=== PATIENT | male | born 1950 | race Caucasian/White ===

== ENCOUNTER 2021-06-17 16:40 | Inpatient (IN) ==
[2021-06-17 20:37] LABS: PT Patient Result 10.6 SECS (10.5-12.0); Partial Thromboplastin Time 22.8 SECS (23.8-32.1)
[2021-06-17 20:40] LABS: Basophils # 0.1 10*3/uL (0.0-0.2); Basophils % 0.9 % (0.0-0.8); Eosinophils # 0.1 10*3/uL (0.0-0.87); Eosinophils % 1.1 % (0.00-10.9); Hematocrit 22.3 VOL% (42.0-52.0); Immature Granulocytes % 0.6 %; Immature Granulocytes Absolute 0.03 #; Lymphocytes # 1.5 10*3/uL (1.4-4.0); Lymphocytes % 27.3 % (21.2-54.2); Mean Corpuscular HGB Conc 26.5 GM/DL (32-36); Mean Corpuscular Volume 67.6 FL (87-102); Mean Platelet Volume 9.7 FL (9.6-12.0); Monocytes # 0.7 10*3/uL (0.11-0.8); Monocytes % 12.3 % (1.7-12.7); Neutrophils % 57.8 % (38.7-73.9); Platelet Count 376 T/CUMM (130-400); Red Cell Distribution Width 18.8 % (9.3-17.3); White Blood Count 5.4 T/CUMM (4-12)
[2021-06-17 20:42] LABS: Albumin 4.1 G/DL (3.4-5.0); Bilirubin,Total 0.4 MG/DL (0.20-1.00); Hemoglobin 5.9 GM/DL (14.0-18.0); Osmolality,Calculated 276.7 MOS/KG (273-304); Potassium 3.8 MMOL/L (3.5-5.1); Total Protein 7.2 G/DL (6.4-8.2)
[2021-06-17] MEDS ORDERED: SODIUM CHLORIDE 0.9% 1,000 ML IV PRN (23:31)
[2021-06-17] MEDS ORDERED: ONDANSETRON 4 MG/2 ML VIAL IV PRN (23:31)
[2021-06-17] MEDS ORDERED: ACETAMINOPHEN 325 MG TABLET PO PRN (23:31)
[2021-06-17] MEDS ORDERED: GLUCAGON 1 MG VIAL IM PRN (23:31)
[2021-06-17] MEDS ORDERED: ZALEPLON 5 MG CAPSULE PO PRN (23:31)
[2021-06-17] MEDS ORDERED: ALUMINUM/MAGNES/SIMETH MAX STR 30 ML UDCUP PO PRN (23:31)
[2021-06-17] MEDS ORDERED: DEXTROSE 10% 250 ML BAG IV PRN (23:43)
[2021-06-17] MEDS ORDERED: SODIUM CHLORIDE 0.9% 1,000 ML IV SCH (23:45)
[2021-06-18] MEDS: PANTOPRAZOLE 40 MG VIAL IV SCH ×3 (00:02→23:42)
[2021-06-18 00:57] LABS: % Iron Saturation 2.1 % (18-50)
[2021-06-18 03:51] LABS: Eosinophils # 0.1 10*3/uL (0.0-0.87); Eosinophils % 3.6 % (0.00-10.9); Immature Granulocytes % 0.3 %; Immature Granulocytes Absolute 0.01 #; Lymphocytes # 1.2 10*3/uL (1.4-4.0); Lymphocytes % 31.9 % (21.2-54.2); Mean Corpuscular HGB Conc 27.4 GM/DL (32-36); Mean Corpuscular Volume 70.3 FL (87-102); Mean Platelet Volume 9.7 FL (9.6-12.0); Monocytes # 0.6 10*3/uL (0.11-0.8); Monocytes % 15.3 % (1.7-12.7); Neutrophils % 47.9 % (38.7-73.9); Platelet Count 337 T/CUMM (130-400); Red Blood Count 3.27 MC/CUMM (3.8-5.5); Red Cell Distribution Width 21.5 % (9.3-17.3); White Blood Count 3.9 T/CUMM (4-12)
[2021-06-18 03:58] LABS: Hemoglobin 6.3 GM/DL (14.0-18.0)
[2021-06-18 04:01] LABS: Bacteria,Urine Occasional /HPF (Few); Mucus,Urine Occasional /LPF (Occasional); RBC,Urine 1 /HPF (0-4); Squamous Epithelial Cell,Urine Occasional /HPF (0-10)
[2021-06-18 04:03] LABS: Bilirubin,Urine Negative (Negative); Blood, Urine Negative (Negative); Glucose,Urine (UA) 100 mg/dL (Negative); Ketones,Urine Negative (Negative); Nitrite,Urine Negative (Negative); Protein,Urine Negative (Negative); Urine Appearance Clear (Clear); Urine Color Yellow (Yellow); Urine Urobilinogen 0.2 eU/dL (<2.0)
[2021-06-18 04:08] LABS: Microcytosis 1+; Ovalocytes Slight; Platelet Estimate Adequate
[2021-06-18 04:09] LABS: Hypochromia 1+
[2021-06-18 04:34] LABS: Vitamin B12 218 PG/ML (211-911)
[2021-06-18 04:51] LABS: Albumin 3.6 G/DL (3.4-5.0); Bilirubin,Total 0.4 MG/DL (0.20-1.00); Calcium 8.5 MG/DL (8.5-10.1); Ferritin 2.2 ng/mL (26-388); Osmolality,Calculated 282.3 MOS/KG (273-304); Potassium 4.1 MMOL/L (3.5-5.1); Total Protein 6.3 G/DL (6.4-8.2)
[2021-06-18 07:20] LABS: Sedimentation Rate-Westergren 22 MM/HR (0-20)
[2021-06-18] MEDS ORDERED: SODIUM CHLORIDE 0.9% 1,000 ML IV PRN (07:39)
[2021-06-18 07:58] LABS: Hematocrit 26.5 VOL% (42.0-52.0)
[2021-06-18 07:59] LABS: Hemoglobin 7.5 GM/DL (14.0-18.0)
[2021-06-18 08:38] LABS: Hemoglobin A1 (Alkaline) 98.4 % (96.5-98.5); Hemoglobin A2 (Alkaline) 1.6 % (1.5-3.5)
[2021-06-18] MEDS: amLODIPine 2.5 MG TABLET PO SCH (09:02)
[2021-06-18 14:48] LABS: Hematocrit 26.6 VOL% (42.0-52.0); Hemoglobin 7.5 GM/DL (14.0-18.0)
[2021-06-18 22:40] LABS: Hematocrit 27.5 VOL% (42.0-52.0); Hemoglobin 7.8 GM/DL (14.0-18.0)
[2021-06-19 04:21] LABS: Eosinophils # 0.2 10*3/uL (0.0-0.87); Eosinophils % 5.4 % (0.00-10.9); Hematocrit 25.8 VOL% (42.0-52.0); Hemoglobin 7.3 GM/DL (14.0-18.0); Immature Granulocytes % 0.2 %; Immature Granulocytes Absolute 0.01 #; Lymphocytes # 1.4 10*3/uL (1.4-4.0); Lymphocytes % 33.3 % (21.2-54.2); Mean Corpuscular HGB Conc 28.3 GM/DL (32-36); Mean Corpuscular Volume 71.5 FL (87-102); Mean Platelet Volume 9.5 FL (9.6-12.0); Monocytes # 0.7 10*3/uL (0.11-0.8); Monocytes % 18.2 % (1.7-12.7); Neutrophils % 41.9 % (38.7-73.9); Platelet Count 317 T/CUMM (130-400); Red Blood Count 3.61 MC/CUMM (3.8-5.5); Red Cell Distribution Width 21.3 % (9.3-17.3); White Blood Count 4.1 T/CUMM (4-12)
[2021-06-19 04:44] LABS: Band Neutrophils 1 % (0-10); Eosinophils 6 % (0-10); Lymphocytes 32 % (20-55); Total Cells Counted 100
[2021-06-19 04:45] LABS: Albumin 3.6 G/DL (3.4-5.0); Anisocytosis Slight; Bilirubin,Total 0.7 MG/DL (0.20-1.00); Calcium 8.9 MG/DL (8.5-10.1); Osmolality,Calculated 280.3 MOS/KG (273-304); Platelet Estimate Normal; Potassium 3.9 MMOL/L (3.5-5.1); Total Protein 6.3 G/DL (6.4-8.2)
[2021-06-19 04:46] LABS: Acanthocytes Few; Hypochromia 1+
[2021-06-19] MEDS ORDERED: IRON DEXTRAN 25 MG in SYRINGE 1 EACH IV ONE (08:07)
[2021-06-19] MEDS ORDERED: SODIUM CHLORIDE 0.9% 1,000 ML IV PRN (08:07)
[2021-06-19] MEDS: LACTATED RINGERS 1,000 ML IV SCH (09:08)
[2021-06-19] MEDS ORDERED: LIDOCAINE 2% 5 ML VIAL ONE (09:31)
[2021-06-19] MEDS ORDERED: propofoL 200 MG/20 ML VIAL IV ONE (09:31)
[2021-06-19] MEDS ORDERED: PHENYLEPHRINE 1 MG/10 ML SYRINGE IV ONE (09:37)
[2021-06-19] MEDS: FERRIC GLUCONATE COMPLEX 125 MG in SODIUM CHLORIDE 0.9% 100 ML IV SCH (10:35)
[2021-06-19] MEDS: amLODIPine 2.5 MG TABLET PO SCH (10:35)
[2021-06-19] MEDS: PANTOPRAZOLE 40 MG VIAL IV SCH ×2 (10:38→21:21)
[2021-06-19 17:26] LABS: Hematocrit 31.5 VOL% (42.0-52.0); Hemoglobin 9.1 GM/DL (14.0-18.0)
[2021-06-19 22:07] LABS: Hematocrit 29.8 VOL% (42.0-52.0); Hemoglobin 8.6 GM/DL (14.0-18.0)
[2021-06-20 07:02] LABS: Hemoglobin 8.7 GM/DL (14.0-18.0)
[2021-06-20 07:14] LABS: Helmet Cells Few; Hypochromia Slight; Platelet Estimate Normal; Poikilocytosis Slight
[2021-06-20 07:22] LABS: Albumin 3.6 G/DL (3.4-5.0); Bilirubin,Total 0.7 MG/DL (0.20-1.00); Calcium 8.8 MG/DL (8.5-10.1); Osmolality,Calculated 277.4 MOS/KG (273-304); Potassium 3.7 MMOL/L (3.5-5.1); Total Protein 6.4 G/DL (6.4-8.2)
[2021-06-20 07:27] LABS: Basophils # 0.1 10*3/uL (0.0-0.2); Basophils % 1.2 % (0.0-0.8); Eosinophils # 0.2 10*3/uL (0.0-0.87); Eosinophils % 4.3 % (0.00-10.9); Hematocrit 30.4 VOL% (42.0-52.0); Hemoglobin 8.7 GM/DL (14.0-18.0); Immature Granulocytes % 0.2 %; Immature Granulocytes Absolute 0.01 #; Lymphocytes # 1.4 10*3/uL (1.4-4.0); Lymphocytes % 27.6 % (21.2-54.2); Mean Corpuscular HGB Conc 28.6 GM/DL (32-36); Mean Corpuscular Volume 72.2 FL (87-102); Mean Platelet Volume 9.8 FL (9.6-12.0); Monocytes # 0.8 10*3/uL (0.11-0.8); Monocytes % 15.7 % (1.7-12.7); Platelet Count 336 T/CUMM (130-400); Red Blood Count 4.21 MC/CUMM (3.8-5.5); Red Cell Distribution Width 22.7 % (9.3-17.3); White Blood Count 5.1 T/CUMM (4-12)
[2021-06-20 07:55] LABS: Band Neutrophils 1 % (0-10); Eosinophils 4 % (0-10); Lymphocytes 30 % (20-55); Smudge Cells Few; Total Cells Counted 100
[2021-06-20] MEDS: FERRIC GLUCONATE COMPLEX 125 MG in SODIUM CHLORIDE 0.9% 100 ML IV SCH (09:05)
[2021-06-20] MEDS: LACTATED RINGERS 1,000 ML IV SCH (09:06)
[2021-06-20] MEDS: amLODIPine 2.5 MG TABLET PO SCH (09:07)
[2021-06-20] MEDS: PANTOPRAZOLE 40 MG VIAL IV SCH (09:10)
[2021-06-20 13:12] VITALS: BP 147/75
== END 2021-06-20 13:04 | disposition home or self-care (01) | DRG 812 ==
LOC: N.ED 16:40 → N.EDINP 23:31 → N.TELEN 06-18 12:58
PROVIDERS: ADMIT Internal Medicine; ATTEND Internal Medicine